=== PATIENT | female | born 1965 | race Caucasian/White ===

== ENCOUNTER → 2021-08-12 | Outpatient (CLI) | payer BC ==
--- NOTE | 2021-08-12 11:10 | Diagnostic Imaging Report ---
INDICATION: KNEE PAIN AND SWELLING LEFT TECHNIQUE: 3 views of the left knee CORRELATION STUDY: None FINDINGS: Some generalized bony demineralization. The joint spaces are maintained. The articular surfaces are smooth and preserved. There is no acute bony abnormality. Suggestion for a small joint effusion. IMPRESSION: 1. Negative for acute bony abnormality of the knee. Mild degenerative change. Dictated by: Dictated on workstation # [id number]
== END ==
LOC: RAD FS 10:43
PROVIDERS: ATTEND Nurse Practitioner
DX: M17.12 Unilateral primary osteoarthritis, left knee (principal)
CPT/HCPCS: 73562